=== PATIENT | male | born 1940 | race Caucasian/White ===

== ENCOUNTER → 2021-04-02 | Outpatient (CLI) | payer MEDICARE, BC ==
[~2021-04-02] MED LIST: ALBU8.5H5 INH; BUDE0.5A INH; CALC500T93 PO; CHOL2000 PO; DONE10TA7 PO; FINA5TAB4 PO; GLUC1CAP48 PO; IBUP-1623 PO; IPRA3AMP18 INH; MEMA28CA PO; TIOT18CA INH; VITA-74 PO
[2021-04-02 10:51] LABS: BASOPHILS % (AUTO) 1 % (0-1); EOSINOPHILS % (AUTO) 3 % (1-7); LYMPHOCYTES % (AUTO) 23 % (22-44); MEAN CORPUSCULAR HEMOGLOBIN 27.3 pg (27.5-34.5); MEAN CORPUSCULAR HGB CONC 32.8 g/dL (33.2-36.2); MEAN PLATELET VOLUME 8.5 fL (7.4-10.4); MONOCYTES % (AUTO) 10 % (2-9); NEUTROPHILS % (AUTO) 64 % (42-75); PLATELET COUNT 249 x10^3/uL (130-400)
[2021-04-02 10:51] LABS: MICROSCOPIC NOT IND
[2021-04-02 11:00] LABS: INTERNATIONAL NORMALIZED RATIO 1.02 (0.93-1.1); PROTHROMBIN TIME 10.9 Seconds (9.6-11.5)
[2021-04-02 11:03] LABS: ALBUMIN 3.7 g/dL (3.4-5.0)
[2021-04-02 11:06] LABS: ALANINE AMINOTRANSFERASE 22 U/L (12-78); ALKALINE PHOSPHATASE 103 U/L (45-117); BILIRUBIN,TOTAL 0.5 mg/dL (0.2-1.0); CREATININE 1.05 mg/dL (0.7-1.3); TOTAL PROTEIN 7.2 g/dL (6.4-8.2)
[2021-04-02 11:10] LABS: ANION GAP 2 mmol/L (5-15); CHLORIDE 108 mmol/L (98-107)
[2021-04-02 11:27] LABS: MD MORPH REVIEW ONLY
[2021-04-02 11:30] LABS: <PLATELET ESTIMATE> ADEQUATE; <PLT MORPHOLOGY> NORMAL PLT MORPH; OVALOCYTES 2+
== END | disposition home or self-care (01) ==
LOC: STAR 09:42
PROVIDERS: ATTEND Urology
DX: Z01.818 Encounter for other preprocedural examination (principal); N32.89 Other specified disorders of bladder; R00.1 Bradycardia, unspecified; Z20.822 Contact with and (suspected) exposure to COVID-19
CPT/HCPCS: 36415; 80053; 81003; 85025; 85610; 85730; 87086; 93005; U0003; U0005

== ENCOUNTER 2021-04-08 08:11 | Day surgery (SDC) | payer MEDICARE, BC ==
[~2021-04-08] VITALS: Ht 185.4 cm; Wt 93.9 kg
[2021-04-08] MEDS ORDERED: CHLORHEXIDINE 15 ML UDC ONE (09:47)
[2021-04-08] MEDS ORDERED: LACTATED RINGERS 1,000 ML IV SCH (10:00)
[2021-04-08] MEDS ORDERED: CHLORHEXIDINE 15 ML UDC PO ONE (10:00)
[2021-04-08] MEDS ORDERED: GEMCITABINE HCL 1,000 MG in SODIUM CHLORIDE 0.9% 23.7 ML IS ONE (10:30)
[2021-04-08] MEDS ORDERED: ONDANSETRON 2MG/ML, 2ML ONE (10:49)
[2021-04-08] MEDS ORDERED: OMNIPAQUE 350 MG/ML, 50 ML BOTTLE ONE (10:49)
[2021-04-08] MEDS ORDERED: INDIGO CARMINE 0.8%, 5ML ONE (10:49)
[2021-04-08] MEDS ORDERED: CEFAZOLIN 1,000 MG ONE ×2 (10:49)
[2021-04-08] MEDS ORDERED: PROPOFOL 10 MG/ML, 20ML ONE (10:49)
[2021-04-08] MEDS ORDERED: LIDOCAINE-MPF 2% ,5ML ONE (10:49)
[2021-04-08] MEDS ORDERED: ACETAMINOPHEN 325 MG TABLET PO PRN (11:00)
[2021-04-08] MEDS ORDERED: LABETALOL 5MG/ML, 20ML IV PRN (11:00)
[2021-04-08] MEDS ORDERED: HYDROmorphone 1 MG/ML, 1ML INJ IVPush PRN (11:00)
[2021-04-08] MEDS ORDERED: MEPERIDINE/PF 25MG/0.5ML IVPush PRN (11:00)
[2021-04-08] MEDS ORDERED: hydrALAzine 20 MG/ML, 1ML IV PRN (11:00)
[2021-04-08] MEDS ORDERED: ONDANSETRON 2MG/ML, 2ML IVPush PRN (11:00)
[2021-04-08] MEDS ORDERED: OXYcodone 5 MG/5 ML ORAL.SOL UDC PO PRN (11:00)
[2021-04-08] MEDS ORDERED: OPIUM/BELLADONNA SUPP.RECT 16.2-30 MG ONE (11:49)
[2021-04-08] MEDS ORDERED: PHENAZOPYRIDINE 200 MG TABLET ONE (11:49)
[2021-04-08] MEDS ORDERED: FENTANYL PF 100 MCG/2ML ONE (11:56)
[2021-04-08] MEDS ORDERED: OXYcodone 5 MG/5 ML ORAL.SOL UDC ONE (11:56)
[2021-04-08] MEDS ORDERED: OPIUM/BELLADONNA SUPP.RECT 16.2-30 MG PR ONE (12:00)
[2021-04-08] MEDS: FENTANYL PF 100 MCG/2ML IV PRN ×2 (12:00→12:11)
[2021-04-08] MEDS ORDERED: PHENAZOPYRIDINE 200 MG TABLET PO ONE (12:00)
== END 2021-04-08 13:50 | disposition home or self-care (01) ==
LOC: OUT 08:11
PROVIDERS: ATTEND Urology
DX: D49.4 Neoplasm of unspecified behavior of bladder (principal); C67.4 Malignant neoplasm of posterior wall of bladder; N40.1 Benign prostatic hyperplasia with lower urinary tract symptoms; N13.8 Other obstructive and reflux uropathy; Z79.899 Other long term (current) drug therapy
CPT/HCPCS: 52005; 52235; 74420; 88305; C1758; C1769; J0690; J2405; J2704; J3010; J7120; J9201; Q9967; 76000